=== PATIENT | female | born 1950 | race Caucasian/White ===

== ENCOUNTER → 2017-01-24 07:39 | Outpatient (CLI) | payer MEDICARE, OTHER ==
[2016-05-05 15:27] VITALS: BMI 26.1
[~2017-01-24 07:39] MED LIST: ACETAMINOPHEN325 MG PO; AMBIEN10 MG PO; AMBIEN5 MG PO; ANTARA43 MG PO; ASPIRIN325 MG PO; ASPIRIN81 MG PO; ATROVENT 0.03%30 ML NS; BACTRIM DS TABL1 TAB PO; CARAFATE1 G PO; COLACE100 MG PO; CRESTOR20 MG PO; FERROUS SULFAT325 MG PO; FLUTICASONE PRO16 GM NS; GABAPENTIN100 MG PO; HYDROCODON-ACE1 EAC7 PO; HYDROCODONE-APA1 TAB PO; IPRAT-ALBUT 0.5-3 ML UPD; LEVAQUIN500 MG PO; LEVAQUIN750 MG PO; LOPRESSOR25 MG PO; MIRALAX17 GM PO; MUCINEX D1 TAB.SR . PO; NAPROSYN500 MG PO; PERFOROMIS20 MCG/21 NEB; PHENERGAN25 M1 PO; PLAVIX75 MG PO; PRILOSEC20 MG PO; PROTONIX40 MG PO; PULMICORT0.5 MG/21 NEB; RESTORIL15 MG PO; SCOT-TUSSI10 MG/5 ML PO; SINGULAIR10 MG PO; SOMA350 MG PO; TESSALON PERLE100 MG PO; VENTOLIN HFA18 GM INH; VISTARIL50 MG PO; VOLTAREN75 MG PO; ZOCOR20 MG PO; ZOFRAN4 MG PO; ZOLOFT50 MG PO
[2017-01-24 08:35] LABS: ALBUMIN 3.4 g/dL (3.4-5.0); BILIRUBIN - DIRECT 0.04 mg/dL (0.00-0.30); BILIRUBIN - INDIRECT 0.19 mg/dL (0.00-1.00); BILIRUBIN - TOTAL 0.23 mg/dL (0.2-1.3); PROTEIN - SERUM 7.2 g/dL (6.4-8.2)
== END | disposition home or self-care (01) ==
LOC: D.LAB 08-16 09:00 → D.US 07:39
PROVIDERS: Internal Medicine Gastroenterology
DX: K76.0 Fatty (change of) liver, not elsewhere classified (principal)

== ENCOUNTER 2017-05-09 15:27 | Emergency (ER) | payer MEDICARE, OTHER ==
[2016-05-05 15:27] VITALS: BMI 26.1
== END 2017-05-09 18:34 | disposition home or self-care (01) ==
LOC: D.ER 15:27
DX: F41.9 Anxiety disorder, unspecified (principal); K21.9 Gastro-esophageal reflux disease without esophagitis

== ENCOUNTER 2017-12-04 10:59 | Outpatient (CLI) | payer MEDICARE, OTHER ==
[~2017-12-04] VITALS: Ht 177.8 cm; Wt 74.1 kg
--- NOTE | ~2017-12-04 | OP ---
PATIENT NAME: EVELIN WESLEY MEDICAL RECORD: [id number] :48 LOCATION:D.CAT ADMISSION DATE: SURGEON: TONYA HAWK MD DATE OF OPERATION: 12/04/2017 PROCEDURE: Left heart catheterization, selective coronary angiography, right radial approach. CATHETERS: Radial sheath, [place] catheter. The procedure was well tolerated and the patient returned to [place]. Sheath was removed. TR band was placed. FINDINGS: Left ventriculography in 30-degree HARRIS view: Normal wall motion, normal systolic function. CORONARY ANATOMY. LEFT MAIN: Left main is free of disease. LAD: LAD has an area of previous stenting, which is widely patent without evidence of restenosis. No progression of gambell disease. CIRCUMFLEX: Circumflex is free of disease. RIGHT CORONARY ARTERY: Right coronary artery is dominant system giving rise to PDA and is free of disease. IMPRESSION: 1. No evidence of restenosis. No progression of gambell disease. 2. Normal LV systolic function. TRANSINT:[id number] Voice Confirmation ID: [id number] DOCUMENT ID: [id number] TONYA HAWK MD at 1512 CC: [id number] DICTATION DATE: 12/04/17 1356 RIB CHOPPER: 12/04/17 1428 DEP CLI 12/04/17 [id number] [place] [address]
--- NOTE | ~2017-12-04 | HEMODYNAMI ---
PATIENT:EVELIN WESLEY MEDICAL RECORD: [id number] : 48 LOCATION:[facility]OS ADMISSION DATE: 12/04/17 Generatedon:12/04/201713:44 Patient name: EVELIN WESLEY Patient #: [id number] SSN: : 1950 Date of study: 12/04/2017 Page: Of Hemodynamic Procedure Report Patient Data Patient Demographics Procedure consent was obtained First Name: EVELIN Gender: Female Last Name: LUPILLO : 1950 [facility] Initial: SARAH Age: 67 year(s) Patient #: [id number] Race: Additional ID: [id number] Contact details Address: [address] [place] [address] State: [place] City: [facility] Zip code: [address] Past Medical History History of disease Date Diagnosis Comments Asthma Allergies: No known allergies Admission Admission Data Admission Date: 12/04/2017 Admission Time: 10:59 Height (in.): 62 BSA: 1.77 (m2) Height (cm.): 157.48 BMI: 30.73 (kg/m2) Weight (lbs.): 168 Weight (kg.): 76.2 Lab Results Lab Result Date: 12/04/2017 Lab Result Time: 0:00 Biochemistry Name Units Result Min Max BUN mg/dl 8 --(*---)-- 7 18 Creatinine mg/dl 0.6 --(*---)-- 0.6 1.3 CBC Name Units Result Min Max Hemoglobin g/dl 11.9 *-(----)-- 13.5 17.5 Procedure Procedure Types Cath Procedure Diagnostic Procedure [facility] w/Coronaries Miscellaneous Procedures Moderate Sedation up to 15 minutes Procedure Description Procedure Date Procedure Date: 12/04/2017 Procedure Start Time: 13:31 Procedure End Time: 13:43 Procedure Staff Name Function Shravan Tejeda MD Performing Physician Lulu Tolbert RT Monitor Rachel Martinez RT Scrub Sanjana Espinoza RN Nurse Procedure Data Cath Procedure Fluoroscopy Diagnostic fluoroscopy Total fluoroscopy Time: 1.2 time: 1.2 min min Diagnostic fluoroscopy Total fluoroscopy dose: 406 dose: 406 mGy mGy Contrast Material Contrast Material Type Amount (ml) Isovue 300 52 Entry Location Entry Primary Successful Side Size Upsize Upsize Entry Closure Baltazar ccessful Closure Location (Fr) 1 (Fr) 2 (Fr) Remarks Device Remarks Radial Right 6 Fr Mechanical artery Short Compression Estimated blood loss: 5 ml Diagnostic catheters Device Type Used For End Catheter Placement DIAGNOSTIC [place] 110cm 5 Procedure Fr catheter ([id number]) Procedure Complications No complications Procedure Medications Medication Administration Route Dosage 0.9% NaCl I.V. 100 ml/hr Oxygen NC 2 l/min Lidocaine 2% added to field 20 Heparin Flush Bag added to field 2 bags (1000units/500ml NS) Radial Cocktail added to field 1 syringe (Verapomil 2mg/Nitro 400mcg/Heparin 1500units) Versed I.V. 1 mg Fentanyl 50 mcg Fentanyl 50 mcg Versed I.V. 1 mg Fentanyl I.V. 50 mcg Versed I.V. 1 mg Fentanyl I.V. 50 mcg Hemodynamics Rest BSA: 1.77 (m2) HGB: 11.9 (g/dl) O2 Consumption: Estimated: 162.23 (ml/min) O2 Co nsumption indexed: Estimated:91.66 (ml/min/m) Heart Rate: 67 (bpm) Pressure Samples Time Site Value (mmHg) Purpose Heart Use Rate(bpm) 13:34 LV 112/-1,4 Snapshot 87 13:35 AO 95/59(74) Pullback 89 13:35 LV 105/5,7 Pullback 89 Gradients Valve Time Site 1 Site 2 Mean SEP/DFP Peak To Heart Use (mmHg) (sec/min) Peak Rate (mmHg) (bpm) Aortic 13:35 LV AO 7 18 10 89 105/5,7 95/59(74) Calculations Valve P-P Mean Valve Index Valve Source Name Gradient Area Flow (cm2) Aortic 10 7 10 7 Snapshots Pre Cath Intra NCS Post Cath Vital Signs Time Heart Resp SPO2 etCO2 NIBP Rhythm Pain Sedation Rate (ipm) (%) (mmHg) (mmHg) Status Level (bpm) 13:14:13 65 14 100 0 136/73(98) NSR 0 (11) 10(A) , No pain 13:18:29 68 20 99 41 128/69(98) NSR 0 (11) 10(A) , No pain 13:22:43 71 20 97 24.6 123/69(99) NSR 0 (11) 10(A) , No pain 13:26:53 70 20 96 43.9 124/67(91) NSR 0 (11) 9(A) , No pain 13:31:05 78 18 97 39.4 118/67(97) NSR 0 (11) 9(A) , No pain 13:35:17 97 19 96 41.7 105/60(86) NSR 0 (11) 9(A) , No pain 13:39:25 84 18 97 46.2 106/60(80) NSR 0 (11) 10(A) , No pain 13:43:33 96 46.2 108/59(90) NSR 0 (11) 10(A) , No pain Medications Time Medication Route Dose Verified Delivered Reason Notes Effectiveness by by 13:13:28 0.9% NaCl I.V. 100 Shravan Allan used for ml/hr St. Dex Espinoza RN procedure 13:13:36 Oxygen NC 2 l/min Shravan Allan Per St. Dex Espinoza RN physician 13:13:46 Lidocaine 2% added 20ml Shravan Cheney for local to vial [facility] anesthetic field MD GRIFFIN 13:13:54 Heparin Flush added 2 bags Shravan Cheney used for Bag to [facility] procedure (1000units/500ml field MD GRIFFIN NS) 13:14:03 Radial Cocktail added 1 Shravan Shravan for (Verapomil to syringe [facility] vasodilation 2mg/Nitro field MD GRIFFIN 400mcg/Heparin 1500units) 13:23:10 Versed I.V. 1 mg Shravan Allan for sedation [facility]. Dex Espinoza RN, MD 13:23:23 Fentanyl 50 mcg Shravan Phillipsy for sedation [facility]. Dex Espinoza RN, MD 13:29:08 Fentanyl 50 mcg Shravan [place]any for sedation St. Dex Espinoza RN, MD 13:29:19 Versed I.V. 1 mg Shravan Allan for sedation St. Dex Espinoza RN, MD 13:33:23 Fentanyl I.V. 50 mcg Shravan [place] for sedation St. Dex Espinoza RN, MD 13:33:29 Versed I.V. 1 mg Shravan Allan for sedation St. Dex Espinoza RN, MD 13:35:40 Fentanyl I.V. 50 mcg Shravan Allan for sedation St. Dex Espinoza RN, MD Procedure Log Time Note 12:59:59 Patient Height : 62 inches 13:00:06 Patient Weight : 168 lbs 13:00:50 Diagnostic Cath status Elective 13:00:54 Lulu Tolbert RT(R) sent for patient. Start room use. 13:00:55 Time tracking: Regular hours 13:01:00 Plan of Care:Hemodynamics will remain stable., Cardiac rhythm will remain stable., Comfort level will be maintained., Respiratory function will remain adequate., Patient/ family verbilizes understanding of procedure., Procedure tolerated without complication., Recovers from procedure without complications.. 13:03:29 H&P Date Dictated: 11/29/2017 Within 30 days and on chart., H&P Addendum completed by physician on day of procedure. (MUST COMPLETE FOR ALL OUTPATIENTS). 13:06:53 Lab Result : BUN 8 mg/dl 13:06:53 Lab Result : Hemoglobin 11.9 g/dl 13:06:53 Lab Result : Creatinine 0.6 mg/dl 13:08:20 Patient received from Pre/Post Procedure Room to CCL 2 Alert and oriented. Tansferred to table in Supine position. 13:08:25 Warm blankets applied, and leif hugger turned on for patient comfort. 13:08:25 Correct patient and procedure confirmed by team. 13:08:27 Signed procedure consent form obtained from patient. 13:08:33 ECG and BP/O2 sat monitors applied to patient. 13:13:12 Vital chart was started 13:13:28 0.9% NaCl 100 ml/hr I.V. was administered by Sanjana Espinoza RN; used for procedure; 13:13:36 Oxygen 2 l/min NC was administered by Sanjana Espinoza RN; Per physician; 13:13:46 Lidocaine 2% 20ml vial added to field was administered by Shravan Tejeda MD; for local anesthetic; 13:13:54 Heparin Flush Bag (1000units/500ml NS) 2 bags added to field was administered by Shravan Tejeda MD; used for procedure; 13:14:03 Radial Cocktail (Verapomil 2mg/Nitro 400mcg/Heparin 1500units) 1 syringe added to field was administered by Shravan Tejeda MD; for vasodilation; 13:19:10 Baseline sample Acquired. 13:19:14 Rhythm: sinus rhythm 13:19:15 Full Disclosure recording started 13:19:16 Pre-procedure instructions explained to patient. 13:19:17 Pre-op teaching completed and patient verbalized understanding. 13:19:18 Family in patients room. 13:19:20 Patient NPO since Midnight. 13:19:24 Is the patient allergic to Iodine/contrast media? No. 13:19:29 Patient allergic to No known allergies 13:19:31 Is patient on blood thinner?No 13:19:32 Patient diabetic? No. 13:19:35 Patient not . Patient is over age 55. 13:19:38 Previous problem with sedation/anesthesia? No ? 13:19:39 Snore? Yes 13:19:40 Sleep apnea? No 13:19:42 Deviated septum? No 13:19:43 Opens mouth fully? Yes 13:19:44 Sticks out tongue? Yes 13:19:46 Airway obstruction? No ? 13:19:49 Dentures? No ? 13:19:51 Pre procedure: right dorsailis pedis pulse 2+ Normal; easily identifiable; not easily obliterated 13:19:53 Modified Jose D's test Ulnar < 7 seconds 13:19:56 Patient pain scale 0/10 ?. 13:20:13 IV patent on arrival in left hand with 0.9% NaCl at O. 13:20:17 Lab results completed and on chart. 13:20:20 Right Radial & Right Groin area was prepped with chlora-prep and draped in sterile fashion 13:20:21 Alarms reviewed by R. N. 13:20:21 Sharps counted by scrub and verified by R.N. 13:20:23 --------ALL STOP TIME OUT------ 13:20:23 Final Timeout: patient, procedure, and site verified with staff and physician. All members of the team are in agreement. 13:20:25 Right Radial & Right Groin site verified by team. 13:20:28 Physical assessment completed. ASA score P 2 - A patient with mild systemic disease as per Shravan Tejeda MD. 13:20:30 Sedation plan: IV Moderate Sedation Medication:Versed, Fentanyl 13:21:41 Use device set Radial Dx or PCI 13:21:42 ACIST Syringe (21977) opened to sterile field. 13:21:43 Bag Decanter (2002S) opened to sterile field. 13:21:44 ACIST Hand Control (32307) opened to sterile field. 13:21:44 ACIST Manifold (16611) opened to sterile field. 13:21:45 Tegaderm 4 x 4 (1626W) opened to sterile field. 13:21:46 Medline Cath Pack ([id number]) opened to sterile field. 13:21:47 SHEATH 6FR Slender ([id number]) opened to sterile field. 13:21:48 DIAGNOSTIC WIRE .035 260cm J wire (389539) opened to sterile field. 13:21:48 MBrace Wrist Support ([id number]) opened to sterile field. 13:23:10 Versed 1 mg I.V. was administered by Sanjana Espinoza RN; for sedation; 13:23:23 Fentanyl 50 mcg was administered by Sanjana Espinoza RN; for sedation; 13:25:51 Zero performed for pressure channel P1 13:26:03 Zero performed for pressure channel P1 13:26:40 Zero performed for pressure channel P1 13:26:51 Zero performed for pressure channel P1 13:27:45 Zero performed for pressure channel P1 13:29:08 Fentanyl 50 mcg was administered by Sanjana Espinoza RN; for sedation; 13:29:19 Versed 1 mg I.V. was administered by Sanjana Espinoza RN; for sedation; 13:31:06 Procedure started. 13:31:33 Local anesthetic to right radial artery with Lidocaine 2% by Shravan Tejeda MD.INITIAL ACCESS ONLY 13:32:56 A 6 Fr Short sheath was inserted into the Right Radial artery 13:33:23 Fentanyl 50 mcg I.V. was administered by Sanjana Espinoza RN; for sedation; 13:33:29 Versed 1 mg I.V. was administered by Sanjana Espinoza RN; for sedation; 13:33:32 A DIAGNOSTIC [place] 110cm 5 Fr catheter ([id number]) was advanced over the wire and used for Procedure. 13:34:05 LV gram done using HARRIS 13:34:52 Injector settings: Ml/sec: 5, Volume: 15, 13:35:09 LV hemodynamics recorded. 13:35:26 EF : 55 % 13:35:40 Fentanyl 50 mcg I.V. was administered by Sanjana Espinoza RN; for sedation; 13:36:51 LCA angiography performed. 13:37:15 RCA angiography performed. 13:37:36 Catheter removed. 13:38:00 TR BAND Standard ([id number]) opened to sterile field. 13:38:13 Sheath removed intact; hemostasis achieved with Mechanical Compression to the Right Radial artery. 13:38:18 Procedure ended.(Physican Out) 13:38:25 Fluoroscopy time 01.20 minutes. 13:38:30 Fluoroscopy dose: 406 mGy 13:38:30 Flurop Dose total: 406 13:38:35 Contrast amount:Isovue 300 52ml. 13:38:36 Sharps counted by scrub and verified by R.N. 13:38:56 TR band inflated with 10cc of air. 13:39:17 Post procedure: right dorsailis pedis pulse 2+ Normal; easily identifiable; not easily obliterated. 13:39:23 Post-procedure physical assessment completed. ASA score P 2 - A patient with mild systemic disease as per Shravan Tejeda MD. 13:39:27 Post procedure rhythm: unchanged. 13:39:30 Estimated blood loss: 5 ml 13:39:31 Post procedure instruction explained to patient.Patient verbalizes understanding. 13:39:31 Patient needs reinforcement of post procedure teaching. 13:41:00 Procedure Complication : No complications 13:42:59 Procedure type changed to Cath procedure, Diagnostic procedure, LHC, LHC w/Coronaries, Miscellaneous Procedures, Moderate Sedation up to 15 minutes 13:43:32 Procedure and supply charges have been captured, reviewed, submitted and are correct. 13:43:33 Vital chart was stopped 13:43:33 See physician's report for complete and final results. 13:43:37 Report given to Pre/Post Procedure Room. 13:43:40 Patient transfered to Pre/Post Procedure Room with Bed. 13:43:41 Procedure ended. 13:43:41 Full Disclosure recording stopped 13:43:45 End room use (Document Last) Device Usage Item Name Manufacture Quantity Catalog Hospital Part Current Minima l Lot# / Number Charge Number Stock Stock Serial# Code ACIST Acist 1 69136 169132 722525 544252 20 Syringe Medical (65696) Systems Inc Bag Decanter Microtek 1 2001S 133184 57729 028549 5 (2001S) Medical Inc. ACIST Hand Acist 1 05094 559937 484908 242096 5 Control Medical (75518) Systems Inc ACIST Acist 1 20743 019360 556249 573801 5 Manifold Medical (62392) Systems Inc Tegaderm 4 x 3M 1 1626W 132521 674712 113180 5 4 (1626W) Medline Cath Cardinal 1 [id number] 506499 21721 615620 5 Pack [facility] ([id number]) SHEATH 6FR Terumo 1 [id number] 156934 216643 454054 40 Slender ([id number]) DIAGNOSTIC [facility] [employer] 1 118388 429997 029115 583350 30 WIRE .035 260cm J wire (245163) MBrace Wrist Advanced 1 140-0250-00 747138 48278 947457 5 Support Vascular ([id number]) Dynamics DIAGNOSTIC Terumo 1 40-4453 653350 534859 442683 5 [place] 110cm 5 Fr catheter (487405) TR BAND Terumo 1 [id number] 086423 246683 061699 40 Standard ([id number]) Signature Audit [place] Stage Time Signature Unsigned Intra-Procedure 12/04/2017 Rachel Martinez 1:44:26 PM RT(R) Signatures Monitor : Lulu Tolbert Signature : RT Date : Time : [facility] [address] [place] [address]
[2017-12-04] MEDS ORDERED: PEPCID20 MG PO (11:15)
[2017-12-04] MEDS ORDERED: LANOXIN125 MCG PO (11:16)
[2017-12-04] MEDS ORDERED: DICLOFENAC SODI50 MG PO (11:16)
[2017-12-04] MEDS ORDERED: MIDODRINE HCL2.5 MG PO (11:17)
[2017-12-04] MEDS ORDERED: PROPAFENONE HC225 MG PO (11:17)
[2017-12-04 11:27] VITALS: BP 121/61; Ht 177.8 cm; Wt 74.1 kg
[2017-12-04 11:42] LABS: BASOPHILS 0.9 % (0-2); HEMATOCRIT 36.4 % (36.0-48.0); HEMOGLOBIN 11.9 g/dL (12-16); IMMATURE GRANULOCYTES 0.4 % (0-5); MCH 28.1 pg (26.0-34.0); MCHC 32.7 g/dL (31.0-37.0); MCV 85.8 fL (80.0-100.0); MEAN PLATELET VOLUME 8.9 fL (7.4-10.4); MONOCYTES 9.4 % (2-11); NEUTROPHILS 59.3 % (40-80); PLATELET COUNT 300 10x3/uL (130-400); RBC 4.24 10x6/uL (4.00-5.40); RDW 14.1 % (11.5-14.5); WBC 7.9 10x3/uL (4.8-10.8)
[2017-12-04 12:00] LABS: CALC OSMOLALITY 271 mosm/kg (275-300); CALCIUM 8.6 mg/dL (8.5-10.1); CARBON DIOXIDE 26.3 mmol/L (21.0-32.0); CHLORIDE - SERUM 103 mmol/L (98-107); CREATININE - SERUM 0.6 mg/dL (0.6-1.3); GLUCOSE 95 mg/dL (74-106); POTASSIUM - SERUM 4.2 mmol/L (3.5-5.1); SODIUM 137 mmol/L (136-145); UREA NITROGEN 8 mg/dL (7-18); eGFR NON AFRICAN AMERICAN > 90 mL/min (90-120)
== END 2017-12-04 16:00 | disposition home or self-care (01) ==
LOC: D.CATH 10:59
PROVIDERS: Internal Medicine Interventional Cardiology
DX: I25.119 Atherosclerotic heart disease of native coronary artery with unspecified angina pectoris (principal); I48.91 Unspecified atrial fibrillation; I10 Essential (primary) hypertension; Z01.812 Encounter for preprocedural laboratory examination

== ENCOUNTER → 2018-02-14 19:56 | Outpatient (CLI) | payer MEDICARE, OTHER ==
[2017-12-04 11:27] VITALS: BMI 23.4
[~2018-02-14 19:56] MED LIST changes: +DICLOFENAC SODI50 MG PO; +LANOXIN125 MCG PO; +MIDODRINE HCL2.5 MG PO; +PEPCID20 MG PO; +PROPAFENONE HC225 MG PO
== END | disposition home or self-care (01) ==
LOC: D.MAMMO 09:15
DX: Z12.31 Encounter for screening mammogram for malignant neoplasm of breast (principal)

== ENCOUNTER → 2018-03-16 16:57 | Outpatient (CLI) | payer MEDICARE, OTHER ==
[2017-12-04 11:27] VITALS: BMI 23.4
== END | disposition home or self-care (01) ==
LOC: D.MAMMO 11:00
DX: R92.8 Other abnormal and inconclusive findings on diagnostic imaging of breast (principal)

== ENCOUNTER → 2018-09-11 16:28 | Outpatient (CLI) | payer MEDICARE, OTHER ==
[2017-12-04 11:27] VITALS: BMI 23.4
[2018-09-11 17:28] LABS: T4 THYROXINE 9.6 ug/dL (4.7-13.3); THYROID STIMULATING HORMONE 1.69 uIU/mL (0.36-3.74)
== END | disposition home or self-care (01) ==
LOC: D.LABREF 16:28
PROVIDERS: Internal Medicine Cardiovascular Disease
DX: R00.2 Palpitations (principal)

== ENCOUNTER → 2018-11-12 10:58 | Outpatient (CLI) | payer MEDICARE, OTHER ==
[2017-12-04 11:27] VITALS: BMI 23.4
== END | disposition home or self-care (01) ==
LOC: D.NM 10:58
DX: R12 Heartburn (principal); K92.1 Melena

== ENCOUNTER 2019-03-12 12:57 | Emergency (ER) | payer MEDICARE, OTHER ==
[~2019-03-12] VITALS: Ht 177.8 cm; Wt 75.0 kg
[2019-03-12 13:01] VITALS: Ht 177.8 cm; Wt 75.0 kg
[2019-03-12 13:51] LABS: BASOPHILS 0.8 % (0-2); EOSINOPHILS 3.6 % (0-7); HEMATOCRIT 32.6 % (36.0-48.0); HEMOGLOBIN 10.9 g/dL (12-16); IMMATURE GRANULOCYTES 0.3 % (0-5); LYMPHOCYTES 29.6 % (15-50); MCH 29.7 pg (26.0-34.0); MCHC 33.4 g/dL (31.0-37.0); MCV 88.8 fL (80.0-100.0); MEAN PLATELET VOLUME 8.8 fL (7.4-10.4); MONOCYTES 7.5 % (2-11); NEUTROPHILS 58.2 % (40-80); PLATELET COUNT 254 10x3/uL (130-400); RBC 3.67 10x6/uL (4.00-5.40); RDW 13.3 % (11.5-14.5); WBC 6.1 10x3/uL (4.8-10.8)
[2019-03-12 14:07] LABS: ALBUMIN 3.1 g/dL (3.4-5.0); ALKALINE PHOSPHATASE 58 U/L (46-116); ALT (SGPT) 15 U/L (10-68); BILIRUBIN - TOTAL 0.23 mg/dL (0.2-1.3); CALC OSMOLALITY 271 mosm/kg (275-300); CALCIUM 8.2 mg/dL (8.5-10.1); CARBON DIOXIDE 21.6 mmol/L (21.0-32.0); CHLORIDE - SERUM 104 mmol/L (98-107); CREATININE - SERUM 0.8 mg/dL (0.6-1.3); GLUCOSE 124 mg/dL (74-106); POTASSIUM - SERUM 3.9 mmol/L (3.5-5.1); PROTEIN - SERUM 6.5 g/dL (6.4-8.2); SODIUM 136 mmol/L (136-145); UREA NITROGEN 9 mg/dL (7-18); eGFR NON AFRICAN AMERICAN 75 mL/min (90-120)
[2019-03-12 14:14] LABS: APTT 28.3 SECONDS (22.8-39.4); INR 1.05 (0.85-1.17); PROTIME 13.2 SECONDS (11.6-15.0)
[2019-03-12 14:19] LABS: CKMB 1.2 U/L (0.0-3.6); CREATINE KINASE 77 UL (21-215); MAGNESIUM - SERUM 2.1 mg/dL (1.8-2.4)
[2019-03-12 14:22] LABS: TROPONIN-I < 0.017 ng/mL (0.000-0.060)
[2019-03-12 17:24] VITALS: BP 108/54
== END 2019-03-12 18:05 | disposition home or self-care (01) ==
LOC: D.ER 12:57
PROVIDERS: Family Medicine
DX: R55 Syncope and collapse (principal); I95.9 Hypotension, unspecified

== ENCOUNTER → 2019-04-04 09:26 | Outpatient (CLI) | payer MEDICARE, OTHER ==
[2019-03-12 13:01] VITALS: BMI 23.7
== END | disposition home or self-care (01) ==
LOC: D.HCCARDIO 09:26
PROVIDERS: ATTEND Internal Medicine Cardiovascular Disease
DX: I25.10 Atherosclerotic heart disease of native coronary artery without angina pectoris (principal)

== ENCOUNTER 2019-04-25 06:24 | Outpatient (CLI) | payer MEDICARE, OTHER ==
[~2019-04-25] VITALS: Ht 177.8 cm; Wt 74.5 kg
--- NOTE | ~2019-04-25 | HEMODYNAMI ---
PATIENT:EVELIN WESLEY MEDICAL RECORD: [id number] : 48 LOCATION:JANUARY ADMISSION DATE: 04/25/19 Generatedon:04/25/20199:29 Patient name: EVELIN WESLEY Patient #: [id number] SSN: : 1950 Date of study: 04/25/2019 Page: Of Hemodynamic Procedure Report Patient Data Patient Demographics Procedure consent was obtained First Name: EVELIN Gender: Female Last Name: LUPILLO : 1950 [facility] Initial: SARAH Age: 69 year(s) Patient #: [id number] Race: Additional ID: [id number] Contact details Address: [address] [place] [address] State: [place] City: [facility] Zip code: [address] Past Medical History History of disease Date Diagnosis Comments Asthma Allergies: No known allergies Admission Admission Data Admission Date: 04/25/2019 Admission Time: 6:24 Procedure Procedure Types Cath Procedure Diagnostic Procedure C LH w/Coronaries Procedure Description Procedure Date Procedure Date: 04/25/2019 Procedure Start Time: 9:09 Procedure End Time: 9:28 Procedure Staff Name Function Armaan Clark MD Performing Physician Fabrice Pérez RT Monitor Berenice Alvarez RT Scrub Sai Reynoso RN Nurse Procedure Data Cath Procedure Fluoroscopy Diagnostic fluoroscopy Total fluoroscopy Time: 1.9 time: 1.9 min min Diagnostic fluoroscopy Total fluoroscopy dose: 348 dose: 348 mGy mGy Contrast Material Contrast Material Type Amount (ml) Isovue 300 53 Entry Location Entry Primary Successful Side Size Upsize Upsize Entry Closure Baltazar ccessful Closure Location (Fr) 1 (Fr) 2 (Fr) Remarks Device Remarks Radial Right 6 Fr Mechanical artery Short Compression Estimated blood loss: 10 ml Diagnostic catheters Device Type Used For End Catheter Placement DIAGNOSTIC Mangham 110cm 5 Procedure Fr catheter ([id number]) Procedure Medications Medication Administration Route Dosage Oxygen etCO2 Nasal cannula 2 l/min Lidocaine 2% added to field 20 Heparin Flush Bag added to field 2 bags (1000units/500ml NS) 0.9% NaCl I.V. 100 ml/hr Radial Cocktail added to field 1 syringe (Verapamil 2mg/Nitro 400mcg/Heparin 1500units) Versed I.V. 2 mg Fentanyl I.V. 50 mcg Versed I.V. 1 mg Fentanyl I.V. 50 mcg Versed I.V. 1 mg Fentanyl I.V. 50 mcg Versed I.V. 1 mg Fentanyl I.V. 50 mcg Hemodynamics Rest Heart Rate: 73 (bpm) Pressure Samples Time Site Value (mmHg) Purpose Heart Use Rate(bpm) 9:19 LV 139/-14,5 Snapshot 84 9:19 LV 132/-12,6 EDP 79 Gradients Valve Time Site Site Mean SEP/DFP Peak To Heart Use 1 2 (mmHg) (sec/min) Peak Rate (mmHg) (bpm) Aortic 9:20 LV AO 86 Snapshots Pre Cath Intra NCS Post Cath Vital Signs Time Heart Resp SPO2 etCO2 NIBP (mmHg) Rhythm Pain Sedation Rate (ipm) (%) (mmHg) Status Level (bpm) 8:59:21 70 11 100 42.7 131/78(107) NSR 0 (11) 10(A) , No pain 9:03:13 68 13 96 46.5 129/77(104) NSR 0 (11) 10(A) , No pain 9:07:13 75 14 97 43.5 124/64(105) NSR 0 (11) 10(A) , No pain 9:11:10 75 12 99 30.7 135/64(108) NSR 0 (11) 9(A) , No pain 9:15:14 68 10 98 40 109/60(88) NSR 0 (11) 10(A) , No pain 9:19:16 89 13 98 42 96/57(84) NSR 0 (11) 9(A) , No pain 9:23:46 81 14 97 43.5 107/65(80) NSR 0 (11) 10(A) , No pain 9:28:26 74 8 37.5 104/60(81) NSR 0 (11) 10(A) , No pain Medications Time Medication Route Dose Verified Delivered Reason Notes Effectiveness by by 9:02:34 Oxygen etCO2 2 l/min Armaan Gibbs used for Nasal Eduardo Reynoso supervisor long goods cannula 9:02:39 Lidocaine 2% added 20ml Armaan Armaan for local to vial Eduardo Clark MD anesthetic field 9:02:45 Heparin Flush added 2 bags Armaan Armaan used for Bag to Eduardo Clark MD procedure (1000units/500ml field NS) 9:02:56 0.9% NaCl I.V. 100 Armaan Buffie Per ml/hr Eduardo Reynoso RN physician 9:03:03 Radial Cocktail added 1 Armaan Armaan for (Verapamil to syringe Eduardo Clark MD vasodilation 2mg/Nitro field 400mcg/Heparin 1500units) 9:05:00 Versed I.V. 2 mg Armaan Buffie for sedation Eduardo Reynoso RN 9:05:05 Fentanyl I.V. 50 mcg Armaan Buffie for sedation Eduardo Reynoso RN 9:10:16 Versed I.V. 1 mg Armaan Buffie for sedation Eduardo Reynoso RN 9:10:20 Fentanyl I.V. 50 mcg Armaan Buffie for sedation Eduardo Reynoso RN 9:14:10 Versed I.V. 1 mg Armaan Buffie for sedation Eduardo Reynoso RN 9:14:14 Fentanyl I.V. 50 mcg Armaan Buffie for sedation Eduardo Reynoso RN 9:18:23 Versed I.V. 1 mg Armaan Buffie for sedation Eduardo Reynoso RN 9:19:52 Fentanyl I.V. 50 mcg Armaan Buffie for sedation Eduardo Reynoso RN Procedure Log Time Note 8:30:05 Berenice Alvarez RT(R) sent for patient. Start room use. 8:49:12 Time tracking: Regular hours (M-F 7:00 - 5:00) 8:49:15 Plan of Care:Hemodynamics will remain stable., Cardiac rhythm will remain stable., Comfort level will be maintained., Respiratory function will remain adequate., Patient/ family verbilizes understanding of procedure., Procedure tolerated without complication., Recovers from procedure without complications.. 8:49:20 Patient received from Pre/Post Procedure Room to CCL 2 Alert and oriented. Tansferred to table in Supine position. 8:49:22 Warm blankets applied, and leif hugger turned on for patient comfort. 8:49:22 Correct patient and procedure confirmed by team. 8:49:28 Signed procedure consent form obtained from patient. 8:49:30 ECG and BP/O2 sat monitors applied to patient. 8:49:31 Full Disclosure recording started 8:49:36 H&P Date Dictated: 04/25/2019 Within 30 days and on chart., H&P Addendum completed by physician on day of procedure. (MUST COMPLETE FOR ALL OUTPATIENTS). 8:49:37 Pre-procedure instructions explained to patient. 8:49:38 Pre-op teaching completed and patient verbalized understanding. 8:49:40 Family in patients room. 8:49:41 Patient NPO since Midnight. 8:49:42 Is the patient allergic to Iodine/contrast media? No. 8:49:43 Was the patient premedicated? No 8:49:44 Is patient on blood thinner?No 8:49:45 Patient diabetic? No. 8:49:48 Previous problem with sedation/anesthesia? No ? 8:49:49 Snore? Yes 8:49:50 Sleep apnea? No 8:49:51 Deviated septum? No 8:49:52 Opens mouth fully? Yes 8:49:52 Sticks out tongue? Yes 8:50:01 Airway obstruction? Yes asthma 8:50:03 Dentures? No ? 8:50:11 IV patent on arrival in left forearm with 0.9% NaCl at [facility]. 8:50:17 Lab results completed and on chart. 8:50:21 Right Radial & Right Groin area was prepped with chlora-prep and draped in sterile fashion 8:50:22 Alarms reviewed by R. N. 8:50:22 Sharps counted by scrub and verified by R.N. 8:57:19 Use device set Radial Dx or PCI 8:57:21 ACIST Syringe (99282) opened to sterile field. 8:57:22 Medline Cath Pack ([id number]) opened to sterile field. 8:57:23 Bag Decanter () opened to sterile field. 8:57:23 ACIST Hand Control (61984) opened to sterile field. 8:57:24 ACIST Manifold (27613) opened to sterile field. 8:57:25 Tegaderm 4 x 4 (1626W) opened to sterile field. 8:57:26 MBrace Wrist Support ([id number]) opened to sterile field. 8:57:26 NEEDLE Cook 21G 4cm Radial ([id number]) opened to sterile field. 8:57:31 EMERALD Guide Wire (032-117) opened to sterile field. 8:57:42 SHEATH 6FR RAIN ([id number]) opened to sterile field. 8:58:40 Vital chart was started 9:02:34 Oxygen 2 l/min etCO2 Nasal cannula was administered by Sai Reynoso RN; used for procedure; 9:02:39 Lidocaine 2% 20ml vial added to field was administered by Armaan Clark MD; for local anesthetic; 9:02:45 Heparin Flush Bag (1000units/500ml NS) 2 bags added to field was administered by Armaan Clark MD; used for procedure; 9:02:56 0.9% NaCl 100 ml/hr I.V. was administered by Sai Reynoso RN; Per physician; 9:03:03 Radial Cocktail (Verapamil 2mg/Nitro 400mcg/Heparin 1500units) 1 syringe added to field was administered by Armaan Clark MD; for vasodilation; 9:04:54 Physician arrived 9:04:55 --------ALL STOP TIME OUT------ 9:04:56 Final Timeout: patient, procedure, and site verified with staff and physician. All members of the team are in agreement. 9:04:58 Right Radial & Right Groin site verified by team. 9:05:00 Versed 2 mg I.V. was administered by Sai Reynoso RN; for sedation; 9:05:05 Fentanyl 50 mcg I.V. was administered by Sai Reynoso RN; for sedation; 9:05:05 Fire Safety Assessment: A--An alcohol-based skin anteseptic being used preoperatively., C--Open oxygen or nitrous oxide is being used., D--An ESU, laser, or fiber-optic light is being used. 9:05:10 Physical assessment completed. ASA score P 2 - A patient with mild systemic disease as per Armaan Clark MD. 9:05:56 2) 60-89 Mildly reduced kidney function, and other findings (as for stage 1) point to kidney disease. 9:06:25 Maximum allowable contrast does (3.7 X eGFR X 0.75)247 ml. 9:06:34 Sedation plan: IV Moderate Sedation Medication:Versed, Fentanyl 9:07:39 Baseline sample Acquired. 9::43 Rhythm: sinus rhythm 9:08:50 Zero performed for pressure channel P1 9::44 Procedure started. 9::57 Local anesthetic to right radial artery with Lidocaine 2% by Armaan Clark MD.INITIAL ACCESS ONLY 9:10:16 Versed 1 mg I.V. was administered by Sai Reynoso RN; for sedation; 9:10:20 Fentanyl 50 mcg I.V. was administered by Sai Reynoso RN; for sedation; 9:14:10 Versed 1 mg I.V. was administered by Sai Reynoso RN; for sedation; 9:14:14 Fentanyl 50 mcg I.V. was administered by Sai Reynoso RN; for sedation; 9:17:27 A 6 Fr Short sheath was inserted into the Right Radial artery 9:18:02 A DIAGNOSTIC Mangham 110cm 5 Fr catheter ([id number]) was advanced over the wire and used for Procedure. 9:18:23 Versed 1 mg I.V. was administered by Sai Reynoso RN; for sedation; 9:19:52 Fentanyl 50 mcg I.V. was administered by Sai Reynoso RN; for sedation; 9:20:53 LV gram done using HARRIS 9:20:54 LV hemodynamics recorded. 9:21:03 EF : 60 % 9::47 LCA angiography performed. 9:22:47 RCA angiography performed. 9:23:24 Catheter removed. 9:23:27 TR BAND Standard ([id number]) opened to sterile field. 9:23:43 Sheath removed intact; hemostasis achieved with Mechanical Compression to the Right Radial artery. 9::55 Procedure ended.(Physican Out) 9:24:29 Fluoroscopy time 01.90 minutes. 9::44 Fluoroscopy dose: 348 mGy 9::44 Flurop Dose total: 348 9::52 Contrast amount:Isovue 300 53ml. 9:25:02 Sharps counted by scrub and verified by R.N. 9:26:26 TR band inflated with 13cc of air. 9:26:28 Insertion/operative site no bleeding no hematoma. 9:26:33 Post right radial artery:stable 9:26:45 Post-procedure physical assessment completed. ASA score P 2 - A patient with mild systemic disease as per Armaan Clark MD. 9:27:15 Post procedure rhythm: sinus rhythm 9:27:19 Estimated blood loss: 10 ml 9:27:48 Post procedure instruction explained to patient.Patient verbalizes understanding. 9:27:54 Procedure and supply charges have been captured, reviewed, submitted and are correct. 9:28:07 Vital chart was stopped 9:28:08 See physician's report for complete and final results. 9:28:11 Report given to Pre/Post Procedure Room. 9:28:18 Patient transfered to Pre/Post Procedure Room with Stretcher. 9:28:21 Procedure ended. 9:28:21 Full Disclosure recording stopped 9:28:25 End room use (Document Last) Device Usage Item Name Manufacture Quantity Catalog Hospital Part Current Minima l Lot# / Number Charge Number Stock Stock Serial# Code ACIST Acist 1 44655 597559 121129 160792 20 Syringe Medical (33127) Systems Inc Medline Medline 1 [id number] 436863 68375 531805 5 Cath Pack ([id number]) Bag Microtek 1 2001S 921280 38899 056682 5 Decanter Medical Inc. () ACIST Hand Acist 1 19974 784991 639725 066465 5 Control Medical (73566) Systems Inc ACIST Acist 1 14488 807037 158536 934702 5 Manifold Medical (88828) Systems Inc Tegaderm 4 3M 1 1626W 114458 512779 388702 5 x 4 (1626W) MBrace Advanced 1 140-0250-00 942985 29577 307709 5 Wrist Vascular Support Dynamics ([id number]) NEEDLE Cook Cook Medical 1 [id number] 345294 304187 638757 5 21G 4cm Radial (X89782) EMERALD Cardinal 1 502-455 555706 892145 685617 5 Guide Wire Health (996-510) SHEATH 6FR Cardinal 1 1772063 515531 7555774 576676 5 [facility] (2392360) DIAGNOSTIC Terumo 1 40-7783 796278 025017 982368 5 Mangham 110cm 5 Fr catheter (778112) TR BAND Terumo 1 [id number] 534715 952172 336752 40 Standard ([id number]) Signature Audit [place] Stage Time Signature Unsigned Intra-Procedure 04/25/2019 Fabrice Pérez 9:29:10 AM RT(R) (CV) Signatures Monitor : Fabrice Pérez RT Signature : Date : Time : [facility] [address] [place] [address]
[2019-04-25] MEDS ORDERED: GABAPENTIN100 MG PO (07:05)
[2019-04-25] MEDS ORDERED: ZANAFLEX4 MG PO (07:05)
[2019-04-25 07:16] VITALS: BP 136/62; Ht 177.8 cm; Wt 74.5 kg
[2019-04-25 07:33] LABS: CALC OSMOLALITY 276 mosm/kg (275-300); CALCIUM 8.6 mg/dL (8.5-10.1); CARBON DIOXIDE 27.1 mmol/L (21.0-32.0); CHLORIDE - SERUM 105 mmol/L (98-107); CREATININE - SERUM 0.7 mg/dL (0.6-1.3); GLUCOSE 92 mg/dL (74-106); POTASSIUM - SERUM 3.5 mmol/L (3.5-5.1); SODIUM 140 mmol/L (136-145); UREA NITROGEN 6 mg/dL (7-18); eGFR NON AFRICAN AMERICAN 88 mL/min (90-120)
[2019-04-25 07:43] LABS: BASOPHILS 0.6 % (0-2); EOSINOPHILS 2.9 % (0-7); HEMATOCRIT 34.3 % (36.0-48.0); HEMOGLOBIN 11.4 g/dL (12-16); IMMATURE GRANULOCYTES 0.3 % (0-5); LYMPHOCYTES 39.8 % (15-50); MCH 29.5 pg (26.0-34.0); MCHC 33.2 g/dL (31.0-37.0); MCV 88.6 fL (80.0-100.0); MEAN PLATELET VOLUME 9.2 fL (7.4-10.4); MONOCYTES 8.8 % (2-11); NEUTROPHILS 47.6 % (40-80); PLATELET COUNT 288 10x3/uL (130-400); RBC 3.87 10x6/uL (4.00-5.40); RDW 13.7 % (11.5-14.5); WBC 6.2 10x3/uL (4.8-10.8)
--- NOTE | 2019-04-25 09:52 | NUR ---
RECEIVED PT FROM EKG/ECG TECHNICIAN, SEE ADMIT NOTE. PO FLUIDS AND SANDWICH SERVED. PT IS ALERT AND DENIES ANY C/O. VSS, CALL LIGHT IN REACH.
--- NOTE | 2019-04-25 10:08 | NUR ---
PT HAS MANSOOR DIET WITH NO C/O NAUSEA. TR BAND IS CDI, FINGERS WARM AND CAP REFILL IS BRISK. NSR, DENIES ANY C/O CHEST PAIN.
--- NOTE | 2019-04-25 11:41 | NUR ---
1040 PT SLEEPING INTERMITTENTLY, AWAKENS EASILY AND DENIES ANY C/O. TR BAND IS CDI, FINGERS WARM AND CAP REFILL IS BRISK. VSS. 1120 4 CC OF AIR WEANED FROM TR BAND WITH NO BLEEDING NOTED. FINGERS WARM, VSS. 1140 4 CC OF AIR WEANED FROM TR BAND WITH NO BLEEDING NOTED. FINGERS WARM AND CAP REFILL IS BRISK. FAMILY AT BEDSIDE.
--- NOTE | 2019-04-25 12:13 | NUR ---
OOZING NOTED FROM CATH SITE, 3CC OF AIR REINSTILLED TO TR BAND AND OOZING CEASED. WILL MONITOR CLOSELY.
--- NOTE | 2019-04-25 13:04 | NUR ---
1235 ALL REMAINING AIR WEANED FROM TR BAND WITH NO BLEEDIGN OR HEMATOMA NOTED. FINGERS WARM AND RADIAL PULSE PALPABLE. 2X2 AND TEGADERM PLACED TO SITE. WRIST [id number] IN PLACE. 1300 DRESSING REMAINS CDI, PULSES PALPABLE. PT IS ALERT AND DENIES ANY C/O. PT ESCORTED TO PRIVATE AUTO VIA WC BY NURSE WITH GRANDDAUGHTER DRIVING HER HOME. PT HAS DC INSTRUCTIONS AND ALL PERSONAL BELONGINGS
== END 2019-04-25 13:00 | disposition home or self-care (01) ==
LOC: D.CATH 06:24
PROVIDERS: ATTEND Internal Medicine Cardiovascular Disease
DX: I25.119 Atherosclerotic heart disease of native coronary artery with unspecified angina pectoris (principal); R94.30 Abnormal result of cardiovascular function study, unspecified; Z95.5 Presence of coronary angioplasty implant and graft; Z01.812 Encounter for preprocedural laboratory examination

== ENCOUNTER 2019-05-06 08:00 | Outpatient (CLI) | payer MEDICARE, OTHER ==
[2019-04-25 07:16] VITALS: BMI 23.5
[~2019-05-06 08:00] MED LIST changes: +ZANAFLEX4 MG PO
== END 2019-05-06 23:59 | disposition home or self-care (01) ==
LOC: D.MAMMO 08:00
PROVIDERS: ATTEND Family Medicine
DX: Z12.31 Encounter for screening mammogram for malignant neoplasm of breast (principal)

== ENCOUNTER 2019-06-03 08:00 | Outpatient (CLI) | payer MEDICARE, OTHER ==
[2019-04-25 07:16] VITALS: BMI 23.5
== END 2019-06-03 23:59 | disposition home or self-care (01) ==
LOC: D.MAMMO 08:00
PROVIDERS: ATTEND Family Medicine
DX: R92.8 Other abnormal and inconclusive findings on diagnostic imaging of breast (principal)

== ENCOUNTER 2019-09-10 13:38 | Inpatient (IN) | payer MEDICARE, OTHER ==
[~2019-09-10] VITALS: Ht 177.8 cm; Wt 73.0 kg
[2019-09-10 14:17] VITALS: BP 145/80; BMI 23.1
--- NOTE | 2019-09-10 14:30 | NUR ---
PATIENT ADMITTED TO ROOM 2208. SOB. O2 AT 2L NC PLACED ON PATIENT. STATES MAKING PATIENT FEEL BETTER. SAT 96% ON 2L. REFUSES BED ALARM. WAIVER IN CHART.
--- NOTE | 2019-09-10 14:55 | NUR ---
IV SITED TO RIGHT WRIST AFTER TWO ATTEMPTS. HELD STRAIGHT WITH ARM BOARD PER PATIENT REQUEST.
[2019-09-10 15:25] LABS: BASOPHILS 0.6 % (0-2); EOSINOPHILS 0.5 % (0-7); HEMATOCRIT 34.1 % (36.0-48.0); HEMOGLOBIN 11.2 g/dL (12-16); IMMATURE GRANULOCYTES 0.4 % (0-5); LYMPHOCYTES 16.2 % (15-50); MCH 29.1 pg (26.0-34.0); MCHC 32.8 g/dL (31.0-37.0); MCV 88.6 fL (80.0-100.0); MONOCYTES 6.1 % (2-11); NEUTROPHILS 76.2 % (40-80); RBC 3.85 10x6/uL (4.00-5.40); RDW 13.9 % (11.5-14.5); WBC 11.1 10x3/uL (4.8-10.8)
--- NOTE | 2019-09-10 15:30 | NUR ---
EDUCATION PROVIDED ON NEED FOR URINE. COLLECTION CUP IN ROOM. VERBALIZED UNDERSTANDING.
[2019-09-10 15:40] LABS: PLATELET COUNT 389 10x3/uL (130-400)
[2019-09-10 15:42] LABS: CALC OSMOLALITY 268 mosm/kg (275-300); CARBON DIOXIDE 22.6 mmol/L (21.0-32.0); CHLORIDE - SERUM 100 mmol/L (98-107); CREATININE - SERUM 0.7 mg/dL (0.6-1.3); GLUCOSE 115 mg/dL (74-106); POTASSIUM - SERUM 3.6 mmol/L (3.5-5.1); SODIUM 135 mmol/L (136-145); UREA NITROGEN 6 mg/dL (7-18); eGFR NON AFRICAN AMERICAN 88 mL/min (90-120)
[2019-09-10 15:57] LABS: ALBUMIN 3.2 g/dL (3.4-5.0); ALKALINE PHOSPHATASE 71 U/L (46-116); ALT (SGPT) 21 U/L (10-68); BILIRUBIN - TOTAL 0.16 mg/dL (0.2-1.3); PRO BNP 204 pg/mL (0-125); PROTEIN - SERUM 7.1 g/dL (6.4-8.2)
[2019-09-10 18:29] LABS: APPEARANCE CLEAR (CLEAR); BILIRUBIN NEGATIVE (NEGATIVE); COLOR YELLOW (YELLOW); GLUCOSE NEGATIVE (NEGATIVE); KETONE NEGATIVE (NEGATIVE); NITRITE NEGATIVE (NEGATIVE); PROTEIN NEGATIVE (NEGATIVE); UROBILINOGEN NORMAL (NORMAL)
--- NOTE | 2019-09-10 18:30 | NUR ---
RESTING IN BED. DENIES NEEDS. BED LOW. IV TO RIGHT WRIST PATENT WITHOUT REDNESS. CALL KELLY AND PERSONAL ITEMS IN REACH.
--- NOTE | 2019-09-10 19:56 | NUR ---
IN BED LOOKING AT BOOK, ABLE TO VOICE NEEDS. COMPLAINS OF PAIN TO LOWER BACK, WILL TREAT ACCORDINGLY, PLEASANT MOOD AND AFFECT. LUNG SOUNDS CLEAR BILATERALLY, PULSE OX 97% ON ROOM AIR, WILL NOTE ANY CHANGE.
[2019-09-10 20:00] VITALS: BP 142/76
[2019-09-11] VITALS: BP 125/65
--- NOTE | 2019-09-11 02:04 | NUR ---
I have reviewed this patient and I concur with the Shift Assessment completed by the Licensed Practical Nurse today this shift.
[2019-09-11 04:00] VITALS: BP 117/71
[2019-09-11 05:14] LABS: ALBUMIN 3.1 g/dL (3.4-5.0); ALKALINE PHOSPHATASE 63 U/L (46-116); ALT (SGPT) 17 U/L (10-68); BILIRUBIN - TOTAL 0.22 mg/dL (0.2-1.3); CALC OSMOLALITY 273 mosm/kg (275-300); CALCIUM 8.8 mg/dL (8.5-10.1); CARBON DIOXIDE 25.5 mmol/L (21.0-32.0); CHLORIDE - SERUM 103 mmol/L (98-107); CREATININE - SERUM 0.7 mg/dL (0.6-1.3); GLUCOSE 120 mg/dL (74-106); POTASSIUM - SERUM 4.1 mmol/L (3.5-5.1); PROTEIN - SERUM 6.9 g/dL (6.4-8.2); SODIUM 138 mmol/L (136-145); UREA NITROGEN 5 mg/dL (7-18); eGFR NON AFRICAN AMERICAN 88 mL/min (90-120)
[2019-09-11 05:22] LABS: BASOPHILS 0.1 % (0-2); EOSINOPHILS 0 % (0-7); HEMATOCRIT 34.3 % (36.0-48.0); IMMATURE GRANULOCYTES 0.5 % (0-5); LYMPHOCYTES 11.9 % (15-50); MCH 28.9 pg (26.0-34.0); MCHC 32.1 g/dL (31.0-37.0); MEAN PLATELET VOLUME 9.1 fL (7.4-10.4); MONOCYTES 4.2 % (2-11); NEUTROPHILS 83.3 % (40-80); PLATELET COUNT 432 10x3/uL (130-400); RBC 3.81 10x6/uL (4.00-5.40); RDW 13.9 % (11.5-14.5); WBC 11.4 10x3/uL (4.8-10.8)
--- NOTE | 2019-09-11 07:24 | NUR ---
PT RESTING IN BED. NO SIGNS OF DISTRESS. IV TO RIGHT WRIST PATENT NO REDNESS OR TENDERNESS. ON 2L NC. DENIES ANY FURTHER NEED AT THIS TIME. CALL LIGHT IN REACH. BED LOW POSITION. NO FAMILY AT BEDSIDE AT THIS TIME.
[2019-09-11 09:22] VITALS: BP 113/65
[2019-09-11 12:19] VITALS: Ht 177.8 cm; Wt 73.0 kg
[2019-09-11 13:13] VITALS: BP 135/71
[2019-09-11 16:45] VITALS: BP 136/63
--- NOTE | 2019-09-11 19:37 | NUR ---
I have reviewed this patient and I concur with the Shift Assessment completed by the Licensed Practical Nurse today this shift.
[2019-09-11 19:46] VITALS: BP 127/59
--- NOTE | 2019-09-11 19:53 | NUR ---
UP IN BED WITH TV ON, ABLE TO VOICE ALL NEEDS, UP AD RAGINI IN ROOM, DENIES ANY DISTRESS OR ACUTE PAIN AT THIS TIME. IV TO LEFT WRIST IS KVO, 02 AT 2 LITERS VIA NC. WILL NOTE ANY CHANGE.
[2019-09-12] VITALS: BP 117/48
--- NOTE | 2019-09-12 02:55 | NUR ---
I have reviewed this patient and I concur with the Shift Assessment completed by the Licensed Practical Nurse today this shift.
[2019-09-12 04:00] VITALS: BP 107/59
--- NOTE | 2019-09-12 04:52 | NUR ---
RESTED WELL THIS SHIFT, REQUESTED PAIN MEDS AT 2134 WHICH WERE EFFECTIVE. HAD NO FURTHER COMPLAINTS THIS SHIFT. WILL NOTE ANY CHANGE.
[2019-09-12 06:12] LABS: BASOPHILS 0.1 % (0-2); EOSINOPHILS 0 % (0-7); HEMATOCRIT 31.8 % (36.0-48.0); HEMOGLOBIN 10.1 g/dL (12-16); IMMATURE GRANULOCYTES 0.6 % (0-5); LYMPHOCYTES 10.2 % (15-50); MCH 28.8 pg (26.0-34.0); MCHC 31.8 g/dL (31.0-37.0); MCV 90.6 fL (80.0-100.0); MEAN PLATELET VOLUME 9.1 fL (7.4-10.4); MONOCYTES 3.4 % (2-11); NEUTROPHILS 85.7 % (40-80); PLATELET COUNT 360 10x3/uL (130-400); RBC 3.51 10x6/uL (4.00-5.40); RDW 14.2 % (11.5-14.5); WBC 11.1 10x3/uL (4.8-10.8)
[2019-09-12 06:39] LABS: ALBUMIN 2.9 g/dL (3.4-5.0); ALKALINE PHOSPHATASE 58 U/L (46-116); ALT (SGPT) 19 U/L (10-68); BILIRUBIN - TOTAL 0.17 mg/dL (0.2-1.3); CALC OSMOLALITY 270 mosm/kg (275-300); CALCIUM 8.7 mg/dL (8.5-10.1); CARBON DIOXIDE 27.1 mmol/L (21.0-32.0); CHLORIDE - SERUM 100 mmol/L (98-107); CREATININE - SERUM 0.7 mg/dL (0.6-1.3); GLUCOSE 135 mg/dL (74-106); POTASSIUM - SERUM 4.3 mmol/L (3.5-5.1); PROTEIN - SERUM 6.4 g/dL (6.4-8.2); SODIUM 135 mmol/L (136-145); UREA NITROGEN 10 mg/dL (7-18); eGFR NON AFRICAN AMERICAN 88 mL/min (90-120)
--- NOTE | 2019-09-12 07:17 | NUR ---
PT RESTING IN BED. NO SIGNS OF DISTRESS. IV TO RIGHT AC PATENT NO REDNESS OR TENDERNESS. ON 2L NC. DENIES ANY NEED AT THIS TIME. CALL LIGHT IN REACH. BED LOW POSITION. NO FAMILY AT BEDSIDE AT THIS TIME.
[2019-09-12 08:42] VITALS: BP 132/59
[2019-09-12 12:29] VITALS: BP 120/59
--- NOTE | 2019-09-12 17:33 | NUR ---
FAMILY AT BEDSIDE.PT IS WITHOUT DISTRESS.ASSISTED WITH HEAT IN ROOM.CALL LIGHT IN REACH
[2019-09-12 17:35] VITALS: BP 133/71
--- NOTE | 2019-09-12 19:16 | NUR ---
IN BED WITH BOOK AT SIDE, ABLE TO VOICE ALL NEEDS. IV IS SALINE LOC TO RIGHT FOREARM. DENIES ANY DISTRESS AT THIS TIME. WILL NOTE ANY CHANGE.
[2019-09-12 20:29] VITALS: BP 115/54
--- NOTE | 2019-09-12 22:08 | NUR ---
AT 2044 REQUESTED PAIN MEDS, GIVEN PER ORDERS. EFFECTIVE. WILL NOTE ANY CHANGE.
--- NOTE | 2019-09-13 00:30 | NUR ---
I have reviewed this patient and I concur with the Shift Assessment completed by the Licensed Practical Nurse today this shift.
[2019-09-13 01:22] VITALS: BP 122/63
--- NOTE | 2019-09-13 04:25 | NUR ---
RESTED WELL THIS SHIFT. VOICED NO CONCERNS. WILL NOTE ANY CHANGE.
[2019-09-13 06:20] VITALS: BP 129/56
[2019-09-13 07:32] LABS: BASOPHILS 0.1 % (0-2); EOSINOPHILS 0 % (0-7); HEMATOCRIT 32.1 % (36.0-48.0); HEMOGLOBIN 10.2 g/dL (12-16); IMMATURE GRANULOCYTES 0.9 % (0-5); MCH 29.2 pg (26.0-34.0); MCHC 31.8 g/dL (31.0-37.0); MONOCYTES 7.6 % (2-11); NEUTROPHILS 81.4 % (40-80); PLATELET COUNT 404 10x3/uL (130-400); RBC 3.49 10x6/uL (4.00-5.40); RDW 14.4 % (11.5-14.5); WBC 11.6 10x3/uL (4.8-10.8)
[2019-09-13 07:34] LABS: ALBUMIN 2.9 g/dL (3.4-5.0); ALKALINE PHOSPHATASE 56 U/L (46-116); ALT (SGPT) 20 U/L (10-68); BILIRUBIN - TOTAL 0.11 mg/dL (0.2-1.3); CALC OSMOLALITY 277 mosm/kg (275-300); CALCIUM 8.7 mg/dL (8.5-10.1); CARBON DIOXIDE 28.5 mmol/L (21.0-32.0); CHLORIDE - SERUM 103 mmol/L (98-107); CREATININE - SERUM 0.6 mg/dL (0.6-1.3); GLUCOSE 119 mg/dL (74-106); PROTEIN - SERUM 6.4 g/dL (6.4-8.2); SODIUM 139 mmol/L (136-145); UREA NITROGEN 11 mg/dL (7-18); eGFR NON AFRICAN AMERICAN > 90 mL/min (90-120)
[2019-09-13 09:01] VITALS: BP 130/65
--- NOTE | 2019-09-13 10:55 | NUR ---
PATIENT SPOKE WITH DR COFFEY AND DR FRANCO. OK FOR DISCHARGE. NO NEEDS AT THIS TIME. CL IN REACH. WCTM
[2019-09-13] MEDS ORDERED: ALBUTEROL2.5 MG/3 M INH (11:56)
[2019-09-13] MEDS ORDERED: FLUTICASONE PRO16 GM NASAL (11:57)
[2019-09-13] MEDS ORDERED: PREDNISONE10 MG PO (11:58)
[2019-09-13] MEDS ORDERED: LEVAQUIN750 MG PO (11:58)
--- NOTE | 2019-09-13 13:31 | MORECARE ---
CASE MANAGEMENT DISCHARGE SUMMARY PATIENT: EVELIN WESLEY UNIT: [id number] ADM DATE: 09/10/19 AGE: 69 : 49 SEX: F ROOM/BED: D.2208 AUTHOR: JANNETTE FERNANDEZ PHYSICIAN: REFERRING PHYSICIAN: JAMIE SOSA MD DATE OF SERVICE: 09/13/19 Discharge Plan Patient Name: EVELIN WESLEY Facility: [facility]:[place] : 1950 Planned Disposition: Home or Self Care Anticipated Discharge Date: Discharge Date: Expected LOS: Initial Reviewer: [email or web address] Initial Review Date: 09/10/2019 Generated: 09/13/19 2:31 pm Patient Name: EVELIN WESLEY Page [id number] at 1331 All edits/amendments must be made on the electronic document DICTATION DATE: 09/13/19 1331 ADVERTISING LAYOUT WORKER: ROSANNA 09/13/19 1331 RPT#: [id number] DC DATE: STATUS: ADM IN [facility] [address] [place] [address] END OF REPORT
--- NOTE | 2019-09-13 13:41 | MORECARE ---
CASE MANAGEMENT DISCHARGE SUMMARY PATIENT: EVELIN WESLEY UNIT: [id number] ADM DATE: 09/10/19 AGE: 69 : [birth year] SEX: F ROOM/BED: D.2208 AUTHOR: JANNETTE FERNANDEZ PHYSICIAN: REFERRING PHYSICIAN: JAMIE SOSA MD DATE OF SERVICE: 09/13/19 Discharge Plan Patient Name: EVELIN WESLEY [facility] [facility] 1950 Planned Disposition: Home or Self Care Anticipated Discharge Date: Discharge Date: Expected LOS: Initial Reviewer: [email or web address] Initial Review Date: 09/10/2019 Generated: 09/13/19 2:40 pm DCPIA - Discharge Planning Initial Assessment Updated by [email or web address]: Jil Eller on 09/13/19 1:32 pm * Is the patient Alert and Oriented? Yes * How many steps to enter\exit or inside your home? * PCP IAN * [facility] * Preadmission Environment Home Alone * ADLs Independent * Equipment None * List name and contact numbers for known caregivers / representatives who currently or will assist patient after discharge: MAYELA ESQUIVEL [phone] * Verbal permission to speak to the caregivers and representatives has been obtained from the patient. N/A * Community resources currently utilized None * Additional services required to return to the preadmission environment? No * Can the patient safely return to the preadmission environment? Yes * Has this patient been hospitalized within the prior 30 days at any hospital? No Last DP export: 09/13/19 12:31 Patient Name: EVELIN WESLEY Page 72916 at 1341 All edits/amendments must be made on the electronic document DICTATION DATE: 09/13/19 134 GAS STOVE SERVICER HELPER: ROSANNA 09/13/19 1340 RPT#: [id number] DC DATE: STATUS: ADM IN [facility] [address] [place] [address] END OF REPORT
--- NOTE | 2019-09-13 13:51 | MORECARE ---
CASE MANAGEMENT DISCHARGE SUMMARY PATIENT: EVELIN WESLEY UNIT: [id number] ADM DATE: 09/10/19 AGE: 69 : [birth year] SEX: F ROOM/BED: D.220 AUTHOR: JIMDOC PHYSICIAN: REFERRING PHYSICIAN: JAMIE SOSA MD DATE OF SERVICE: 09/13/19 Discharge Plan Patient Name: EVELIN WESLEY Facility: [facility]:[place] : 1950 Planned Disposition: Home or Self Care Anticipated Discharge Date: Discharge Date: Expected LOS: Initial Reviewer: [email or web address] Initial Review Date: 09/10/2019 Generated: 09/13/19 2:50 pm Comments DCP- Discharge Planning Updated by [email or web address]: Jil Eller on 09/13/19 12:[address] Patient Name: EVELIN WESLEY Admission Status: Urgent Accout number: [id number] Admission Date: 09-10-2019 : 1950 Admission Diagnosis: Attending: IAN, Current LOS: 3 Anticipated DC Date: Planned Disposition: Home or Self Care Primary Insurance: MEDICARE A & B Discharge Planning Comments: CM met with patient to complete initial dc planning assessment. CM educated patient on the CM role and verbal consent given by patient to complete assessment. Patient lives at home by herself where she is independent with her care. At discharge patient plans to return home and feels this is a safe discharge. CM discussed availability of home health, rehab services, and medical equipment. She does not need or use DME. RT did walk test and patient was 97% the whole time. IMM served and explained. Patient plans to drive herself home and feels like this is a safe discharge. Patient denied known discharge needs at this time. CM will continue to follow and will assist as needed with dc plans/needs. Wick And Base Assembler: Jil Elelr DCPIA - Discharge Planning Initial Assessment Updated by [email or web address]: Jil Eller on 09/13/19 1:32 pm * Is the patient Alert and Oriented? Yes * How many steps to enter\exit or inside your home? * PCP IAN * Pharm[facility] * Preadmission Environment Home Alone * ADLs Independent * Equipment None * List name and contact numbers for known caregivers / representatives who currently or will assist patient after discharge: MAYELA ESQUIVEL [phone] * Verbal permission to speak to the caregivers and representatives has been obtained from the patient. N/A * Community resources currently utilized None * Additional services required to return to the preadmission environment? No * Can the patient safely return to the preadmission environment? Yes * Has this patient been hospitalized within the prior 30 days at any hospital? No Coverage Notice Reviewer: [email or web address] Maria Del Carmen Eller Notice Issued Date-Time: 09/13/2019 13:50 Notice Type: IM Discharge Notice Notice Delivered To: Patient Relationship to Patient: Television Equipment Operator Name: Delivery Method: HAND - Hand Delivered Marie Days: Prior Verbal Notification: Recipient Understood Notice: Yes Recipient Signature: Yes Med Rec Note Co-signed by Attending: Coverage Notice Comment: Last DP export: 09/13/19 12:41 Patient Name: EVELIN WESLEY Page 77527 at 1351 All edits/amendments must be made on the electronic document DICTATION DATE: 09/13/19 1350 SENIOR NETWORK ENGINEER: ROSANNA 09/13/19 1350 RPT#: [id number] DC DATE: STATUS: ADM IN [facility] [address] [place] [address] END OF REPORT
[2019-09-13 13:57] VITALS: BP 110/77
--- NOTE | 2019-09-13 14:14 | NUR ---
IV THERAPY REMOVED FROM RIGHT WRIST. TIP INTACT. PRESSURE HELD FOR 5 MIN TO STOP BLEEDING. DISCHARGE INSTRUCTIONS GIVEN. PATIENT VERBALIZED UNDERSTANDING. ASSISTED OUT BY Alejo JARQUIN CNA
--- NOTE | 2019-09-13 15:28 | EC ---
PATIENT:EVELIN WESLEY DATE OF SERVICE: 09/10/19 SEX: F MEDICAL RECORD: [id number] DATE OF : [birth year] LOCATION:D.MS [place] AGE OF PATIENT: 69 ADMISSION DATE: 09/10/19 REFERRING PHYSICIAN: INTERPRETING PHYSICIAN: RAIN MEJÍA MD ECHOCARDIOGRAM REPORT ECHO CHARGES 4 ECHO COMPLETE Date: 09/11/19 CLINICAL DIAGNOSIS: COPD/ASSESS EF AND VALVES HX CAD ECHOCARDIOGRAPHIC MEASUREMENTS (adult normal given) AC root (d.<3.7cm) 2.9 cm LV Septum d (<1.2 cm> 1.4 cm Valve Excursion 1.4 cm LV Septum (systole) 1.6 cm Left Atria (s.<4.0cm> 3.8 cm LVPW d(<1.2cm) 1.5 cm RV (d.<2.3cm) 4.0 cm LVPW (sytole) 1.7 cm LV diastole(<5.6CM) 5.5 cm MV E-F(>70mm/sec) cm LV systole 3.7 cm LVOT Diameter 2.1 cm MV exc.(>10mm) 1.3 cm Est.ejection fraction (50-75%) % DOPPLER: LVIT cm/sec A 91.0 cm/sec E 53.0 cm/sec LA cm/sec RVSP 16 mmHg LVOT 110 cm/sec AOP1/2T m/s Asc. Ao 142 cm/sec RVOT cm/sec RA cm/sec PA cm/sec AV Gradient Peak 8.09 mmHg AV Mean 5.15 mmHg AV Area 2.5 cm MV Gradient Peak 4.59 mmHg MV Mean 1.46 mmHg MV Area cm COMMENTS: Life Coach: Beata RUST Home Restoration Service Cleaner: 1 Dr. Mejía TAPE# PACS Pericardial Effusion N DATE OF SERVICE: PROCEDURE: Echocardiogram. FINDINGS: 1. Left ventricular chamber size is within normal limits. Left ventricular systolic function is normal. Overall ejection fraction estimated at 55% to 60%. 2. Left atrium, right atrium and right ventricular chamber sizes are within normal limits. 3. Valvular structures have normal structure and motion. ECHOCARDIOGRAM REPORT [id number] EVELIN WESLEY 4. Doppler interrogation reveals no significant valvular insufficiency or stenosis. Pulmonary systolic pressure is normal estimated at 16 mmHg. 5. No evidence of pericardial effusion or left ventricular thrombus. TRANSINT:[id number] Voice Confirmation ID: [id number] DOCUMENT ID: [id number] RAIN MEJÍA MD at 1528 CC: [id number] DICTATION DATE: 09/11/19 1235 SPLITTING MACHINE TENDER: 09/11/19 1244 DIS IN 09/13/19 [facility] [address] [place] [id number]
--- NOTE | 2019-09-14 15:45 | MORECARE ---
CASE MANAGEMENT DISCHARGE SUMMARY PATIENT: EVELIN WESLEY UNIT: [id number] ADM DATE: 09/10/19 AGE: 69 : 48 SEX: F ROOM/BED: D.2207 AUTHOR: JANNETTE FERNANDEZ PHYSICIAN: REFERRING PHYSICIAN: JAMIE SOSA MD DATE OF SERVICE: 09/14/19 Discharge Plan Patient Name: EVELIN WESLEY Facility: [facility]:[place] : 1950 Planned Disposition: Home or Self Care Anticipated Discharge Date: 09/13/19 Discharge Date: 09/13/2019 Expected LOS: 3 Initial Reviewer: [email or web address] Initial Review Date: 09/10/2019 Generated: 09/14/19 4:44 pm Comments DCP- Discharge Planning Updated by [email or web address]: Jil Eller on 09/13/19 12:[address] Patient Name: EVELIN WESLEY Admission Status: Urgent Accout number: [id number] Admission Date: 09-10-2019 : 1950 Admission Diagnosis: Attending: IAN, Current LOS: 3 Anticipated DC Date: Planned Disposition: Home or Self Care Primary Insurance: MEDICARE A & B Discharge Planning Comments: CM met with patient to complete initial dc planning assessment. CM educated patient on the CM role and verbal consent given by patient to complete assessment. Patient lives at home by herself where she is independent with her care. At discharge patient plans to return home and feels this is a safe discharge. CM discussed availability of home health, rehab services, and medical equipment. She does not need or use DME. RT did walk test and patient was 97% the whole time. IMM served and explained. Patient plans to drive herself home and feels like this is a safe discharge. Patient denied known discharge needs at this time. CM will continue to follow and will assist as needed with dc plans/needs. Data Transcriber: Jil Eller DCPIA - Discharge Planning Initial Assessment Updated by [email or web address]: Jil Eller on 09/13/19 1:32 pm * Is the patient Alert and Oriented? Yes * How many steps to enter\exit or inside your home? * PCP IAN * Pharmacy [facility] [address] * Preadmission Environment Home Alone * ADLs Independent * Equipment None * List name and contact numbers for known caregivers / representatives who currently or will assist patient after discharge: MAYELA ESQUIVEL [phone] * Verbal permission to speak to the caregivers and representatives has been obtained from the patient. N/A * Community resources currently utilized None * Additional services required to return to the preadmission environment? No * Can the patient safely return to the preadmission environment? Yes * Has this patient been hospitalized within the prior 30 days at any hospital? No Coverage Notice Reviewer: [email or web address] Maria Del Carmen Eller Notice Issued Date-Time: 09/13/2019 13:50 Notice Type: IM Discharge Notice Notice Delivered To: Patient Relationship to Patient: Satellite Dish Installer Name: Delivery Method: HAND - Hand Delivered Marie Days: Prior Verbal Notification: Recipient Understood Notice: Yes Recipient Signature: Yes Med Rec Note Co-signed by Attending: Coverage Notice Comment: Last DP export: 09/13/19 12:51 Patient Name: EVELIN WESLEY Page [id number] at 1545 All edits/amendments must be made on the electronic document DICTATION DATE: 09/14/19 1544 JUNIOR JAVA DEVELOPER: ROSANNA 09/14/19 1544 RPT#: [id number] DC DATE:09/13/19 STATUS: DIS IN [facility] [address] [place] [address] END OF REPORT
== END 2019-09-13 14:15 | disposition home or self-care (01) | DRG 202 ==
LOC: D.M2 13:38 → D.MS 13:38
PROVIDERS: Family Medicine; ADMIT Family Medicine; ATTEND Family Medicine
DX: J20.9 Acute bronchitis, unspecified (principal); J44.0 Chronic obstructive pulmonary disease with (acute) lower respiratory infection; J44.1 Chronic obstructive pulmonary disease with (acute) exacerbation; J96.11 Chronic respiratory failure with hypoxia; E87.2 Acidosis; J45.909 Unspecified asthma, uncomplicated; I48.91 Unspecified atrial fibrillation; I95.9 Hypotension, unspecified; F41.8 Other specified anxiety disorders; E86.0 Dehydration; K21.9 Gastro-esophageal reflux disease without esophagitis

== ENCOUNTER → 2020-06-10 08:45 | Outpatient (CLI) | payer MEDICARE, OTHER ==
[2019-09-11 12:19] VITALS: BMI 23.1
[~2020-06-10 08:45] MED LIST changes: +ALBUTEROL2.5 MG/3 M INH; +FLUTICASONE PRO16 GM NASAL; +PREDNISONE10 MG PO
== END | disposition home or self-care (01) ==
LOC: D.HCCECHO 05-28 13:30
PROVIDERS: ATTEND Internal Medicine Cardiovascular Disease
DX: I25.10 Atherosclerotic heart disease of native coronary artery without angina pectoris (principal)